=== PATIENT | male | born 1955 | race Caucasian/White ===

== ENCOUNTER 2017-06-12 17:20 | Emergency (ER) | payer BC ==
[2017-06-12] MEDS ORDERED: IOPAMIDOL-300 100 ML VIAL IVP ONE ×2 (17:21→20:02)
[2017-06-12 17:48] LABS: BASOPHILS # (AUTO) 0.1 10^3/uL (0.0-0.1); BASOPHILS % (AUTO) 1.5 %; EOSINOPHILS # (AUTO) 0.2 10^3/uL (0.0-0.7); EOSINOPHILS % (AUTO) 3.3 %; HGB - HEMOGLOBIN 12.9 g/dL (14.0-18.0); LYMPHOCYTES # (AUTO) 1.7 10^3/uL (1.5-3.5); LYMPHOCYTES % (AUTO) 29.2 %; MEAN CORPUSCULAR HEMOGLOBIN 28.9 pg (27.0-31.0); MEAN CORPUSCULAR HGB CONC 33.4 g/dL (32.0-36.0); MEAN CORPUSCULAR VOLUME 86.4 fL (80.0-94.0); MEAN PLATELET VOLUME 7.1 fL (7.4-11.4); MONOCYTES # (AUTO) 0.6 10^3/uL (0.0-1.0); MONOCYTES % (AUTO) 9.5 %; NEUTROPHILS # (AUTO) 3.3 10^3/uL (1.5-6.6); NEUTROPHILS % (AUTO) 56.5 %; PLT - PLATELET COUNT 227 10^3/uL (130-450); RED BLOOD COUNT 4.48 10^6/uL (4.70-6.10); RED CELL DISTRIBUTION WIDTH 14.2 % (12.0-15.0); WHITE BLOOD COUNT 5.8 x10^3/uL (4.8-10.8)
[2017-06-12 18:01] LABS: ALBUMIN 4.4 g/dL (3.2-5.5); ALBUMIN/GLOBULIN RATIO 1.4 (1.0-2.2); BILIRUBIN,TOTAL 0.6 mg/dL (0.2-1.0); CALCIUM 9.2 mg/dL (8.5-10.3); CREATININE 0.8 mg/dL (0.6-1.2); TOTAL PROTEIN 7.5 g/dL (6.7-8.2)
[2017-06-12] MEDS ORDERED: ASPIRIN CHEW 81 MG TABLET PO STA (18:20)
--- NOTE | 2017-06-12 18:22 | ED Physician Documentation ---
PD HPI CHEST PAIN - Stated complaint Stated Complaint: CP - Chief complaint Chief Complaint: Cardiac - History obtained from History obtained from: Patient - History of Present Illness Timing - onset: Other (62-year-old gentleman with coronary atherosclerosis diagnosed by calcium score a few years ago in [place] and then followed with a negative stress test, I assume anyway because he never had any angiography after that. He was on Coreg and simvastatin. These were stopped a few months ago because he is undergoing treatment for hepatitis C with Epclusa. Over the last 3 days he has had intermittent atypical chest pain, he has been able to exercise despite it, sometimes it starts after exercising, sometimes it starts at rest. He is a little short of breath with it. There is no active chest pain while we are talking.) Review of Systems Ten Systems: 10 systems reviewed and negative Constitutional: reports: Fatigue Cardiac: reports: Chest pain / pressure. denies: Palpitations, Pedal edema, Calf pain Respiratory: reports: Dyspnea. 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 - Social History Does the pt smoke?: No Smoking Status: Never smoker Does the pt drink ETOH?: No Does the pt have substance abuse?: No - Family History Family history: reports: Non contributory PD ED PE NORMAL - Vitals Vital signs reviewed: Yes - General General: Alert and oriented X 3, No acute distress - HEENT HEENT: PERRL, EOMI - Neck Neck: Supple, no meningeal sign, No bony TTP - Cardiac Cardiac: RRR, No murmur - Respiratory Respiratory: No respiratory distress, Clear bilaterally - Abdomen Abdomen: Soft, Non tender - Back Back: No CVA TTP, No spinal TTP - Derm Derm: Normal color, Warm and dry - Extremities Extremities: No edema, No calf tenderness / cord - Neuro Neuro: Alert and oriented X 3, Normal speech Results - Vitals Vitals: Vital Signs - 24 hr 06/12/17 06/12/17 17:26 19:18 Temperature 36.6 C 36.5 C Heart Rate 58 L 67 Respiratory 18 11 L Rate Blood Pressure 180/73 H 172/83 H O2 Saturation 98 98 Oxygen O2 Source Room air - EKG (time done) 1731 Rate: Rate (enter#) (56) Rhythm: NSR Sims: Normal Intervals: Normal SC QRS: Normal Ischemia: Normal ST segments Computer interpretation: Agree with computer - Labs Labs: Laboratory Tests 06/12/17 06/12/17 06/12/17 17:42 17:42 17:42 WBC 5.8 RBC 4.48 L Hgb 12.9 L Hct 38.7 L MCV 86.4 MCH 28.9 MCHC 33.4 RDW 14.2 Plt Count 227 MPV 7.1 L Neut # 3.3 Lymph # 1.7 Hidalgo # 0.6 Eos # 0.2 Baso # 0.1 Absolute Nucleated RBC 0.00 Nucleated RBC % 0.0 Sodium 135 Potassium 3.9 Chloride 103 Carbon Dioxide 24 Anion Gap 8.0 BUN 19 Creatinine 0.8 Estimated GFR (MDRD) 97 Glucose 93 Calcium 9.2 Total Bilirubin 0.6 AST 23 ALT 20 Alkaline Phosphatase 64 Troponin I < 0.04 Total Protein 7.5 Albumin 4.4 Globulin 3.1 Albumin/Globulin Ratio 1.4 Lipase 29 06/12/17 19:33 WBC RBC Hgb Hct MCV MCH MCHC RDW Plt Count MPV Neut # Lymph # Hidalgo # Eos # Baso # Absolute Nucleated RBC Nucleated RBC % Sodium Potassium Chloride Carbon Dioxide Anion Gap BUN Creatinine Estimated GFR (MDRD) Glucose Calcium Total Bilirubin AST ALT Alkaline Phosphatase Troponin I < 0.04 Total Protein Albumin Globulin Albumin/Globulin Ratio Lipase - Rads (name of study) 1v chest Radiology: EMP read contemporaneously (Nonspecific findings in the right middle lobe, suggestive of COPD, possible mass, consider chest CT.) CT Chest Radiology: EMP read contemporaneously (The mass seen on chest x-ray is likely benign rounded atelectasis, he also has dilatation of the ascending aorta and trivessel coronary artery calcifications and adenopathy.) PD MEDICAL DECISION MAKING - ED course ED course: 62-year-old gentleman was episodic and somewhat typical pain but it is rest pain and nonexertional despite him still Exerting himself. His EKG is nonischemic and biomarkers are negative. Case discussed by phone with Dr. Mcdonald who recommended restarting his cardiac meds and he is following up next week at the [facility], [place] and will likely need a stress test. His chest x-ray was as shown and after discussion with him and his who was followed with a chest CT showing likely benign findings, but he was given a copy of the report and also discussed the dilatation of the thoracic aorta and adenopathy all needing follow-up. Departure - Departure Disposition: Home, Self Care Clinical Impression: Abnormal chest CT, Abnormal chest x-ray, Aortic root dilation Chest pain Qualifiers: Chest pain type: unspecified Qualified Code(s): R07.9 - Chest pain, unspecified Condition: Good Record reviewed to determine appropriate education?: Yes Instructions: Nitroglycerin Fast Act Dc, ED Chest Pain Atypical Unkn Cause Prescriptions: Lisinopril 10 mg PO DAILY #30 tablet Nitroglycerin 0.4 mg SL ONCE #1 bot Comments: Call 911 if you have recurrent chest pain that is resistant to the nitroglycerin or further new complaints. Returning if worse. Follow-up with the cloth classer next Thursday as discussed, take the copy of the CAT scan read with you, you will need follow-up for the aortic root dilatation as well as a repeat chest CT in approximately 3 months to reassess the chest mass which at this point seems likely to be benign.
--- NOTE | 2017-06-12 18:59 | XRAY Preliminary Report ---
Exam: XR CHEST 2 VIEW X-RAY IMPRESSION: Nonspecific findings in the right middle lobe with underlying bronchial wall thickening a nd findings suggestive of COPD. This may represent acute infection and/or atelectasis. There is a pos sible masslike opacity within the right middle lobe on frontal view. Consider CT chest for further ev aluation. [facility] SITE ID: [id number]
--- NOTE | 2017-06-12 19:10 | XRAY Report ---
EXAM: CHEST RADIOGRAPHY EXAM DATE: 06/12/2017 06:33 PM. CLINICAL HISTORY: Chest pain. COMPARISON: None. TECHNIQUE: 2 views. FINDINGS: Lungs/Pleura: Nonspecific streaking hazy opacity present within the right middle lobe with underlying bronchial wall thickening in this region. There is a possible mass-like opacity in this region measu ring up to 4.2 cm. The lungs are otherwise clear. Lungs are hyperexpanded with flattening of the diap hragm and increased retrosternal clear space suggesting possible COPD. No pleural effusion. No pneumo thorax. Mediastinum: Heart and mediastinal contours are unremarkable. Other: None. IMPRESSION: Nonspecific findings in the right middle lobe with underlying bronchial wall thickening and findings suggestive of COPD. This may represent an acute infection and/or atelectasis. There is a possible mas s-like opacity within the right middle lobe on frontal view. Consider CT chest for further evaluation . [facility] Referring Provider Line: [phone] SITE ID: [id number]
[2017-06-12] MEDS ORDERED: IOPAMIDOL-300 100 ML VIAL ONE (19:56)
--- NOTE | 2017-06-12 20:48 | CT Preliminary Report ---
Exam: CT CHEST W/ IMPRESSION: 1. No acute intrathoracic Or mallet. 2. Findings on recent chest radiograph correspond to a right lower lobe posterior region of masslike consolidation. Imaging features are most suggestive of benign rounded atelectasis. However, consider follow-up CT chest with contrast in 3-6 months for reevaluation unless prior imaging is available for comparison to help exclude malignancy. 3. Fusiform aneurysmal dilatation of the ascending thoracic aorta measuring up to 42 mm. 4. Severe trivessel coronary artery calcifications. 5. Nonspecific right hilar and gastrohepatic ligament space adenopathy. These can be reevaluated on t he same above recommended follow-up CT. [facility] SITE ID: [id number]
--- NOTE | 2017-06-12 21:09 | CT Report ---
EXAM: CT CHEST EXAM DATE: 06/12/2017 08:12 PM. CLINICAL HISTORY: Abnormal chest x-ray, chest pain. COMPARISONS: Chest radiographs 06/12/2017. TECHNIQUE: Routine helical CT imaging was performed through the chest. IV contrast: 80 mL Isovue 300. Reconstructions: Coronal and sagittal. Coronal MIP reconstruction also performed. In accordance with CT protocol optimization, one or more of the following dose reduction techniques w ere utilized for this exam: automated exposure control, adjustment of mA and/or KV based on patient s ize, or use of iterative reconstructive technique. FINDINGS: Lungs/Pleura: -In the right lower lobe posteriorly, there is a focus of pleural thickening as well as a punctate ca lcification. Adjacent to this there is parenchymal masslike nodularity measuring 41 x 17 mm (3/44). T here is mild volume loss in this region of the right lower lobe with mild swirling of bronchovascular structures towards the abnormality. This corresponds to the abnormality on recent chest radiograph. -No pleural effusion. No pneumothorax. No evidence of edema. No additional foci of mass or masslike c onsolidation. There are a few scattered punctate calcified granulomata best appreciated on thick slab MIP series 9. No suspicious pulmonary nodules. Central airways are patent. Mediastinum: -No cardiac enlargement. No significant pericardial effusion. There are severe trivessel coronary art jose luis calcifications. -There is fusiform aneurysmal dilatation of the thoracic aorta measuring 42 mm (6/19). Mild calcific plaque present in the ascending thoracic aorta. Moderate at the aortic arch and mild through the desc ending aorta. The aortic arch measures 33 mm (7/35). The descending thoracic aorta is within normal l imits measuring 30 mm. No dissection. -No abnormally enlarged mediastinal lymph nodes. There is an enlarged right hilar lymph node measurin g 13 x 22 mm (3/30) of uncertain significance and etiology. -Main pulmonary arterial caliber is within normal limits. No filling defect of the central pulmonary arteries. Bones: No acute osseous abnormality. No suspicious focal osseous lesion. Minimal degenerative spondyl itic changes present in the thoracic spine. Degenerative changes present at the shoulders with bone-o n-bone appearance on the right. Visualized Abdomen: Borderline-enlarged gastrophrenic ligament lymph node of uncertain etiology (3/61 ). Additional mildly prominent gastrohepatic ligament lymph nodes are also present (for example 3/58) . Normal variant prominent right extrarenal pelvis noted. Other: The visualized lower thyroid is unremarkable. No abnormally enlarged axillary, supraclavicular or internal mammary lymph nodes. IMPRESSION: 1. No acute intrathoracic abnormality. 2. Findings on recent chest radiograph correspond to a right lower lobe posterior region of masslike consolidation. Imaging features are most suggestive of benign rounded atelectasis. However, consider follow-up CT chest with contrast in 3-6 months for reevaluation unless prior imaging is available for comparison to help exclude malignancy. 3. Fusiform aneurysmal dilatation of the ascending thoracic aorta measuring up to 42 mm. 4. Severe trivessel coronary artery calcifications. 5. Nonspecific right hilar and gastrohepatic ligament space adenopathy. These can be reevaluated on t he same above recommended follow-up CT. [facility] Referring Provider Line: [phone] SITE ID: [id number]
[2017-06-12] MEDS ORDERED: LISINOPRIL 5 MG TABLET PO STA (21:27)
[2017-06-12 21:31] VITALS: BP 152/78
== END 2017-06-12 21:36 | disposition home or self-care (01) ==
LOC: ED 17:20
DX: R93.7 Abnormal findings on diagnostic imaging of other parts of musculoskeletal system (principal); I77.819 Aortic ectasia, unspecified site; R07.9 Chest pain, unspecified; I25.10 Atherosclerotic heart disease of native coronary artery without angina pectoris
CPT/HCPCS: 36415; 71046; 71260; 80053; 83690; 84484; 85025; 93005; 99283; A9270; Q9967

== ENCOUNTER 2017-11-23 11:55 | Outpatient (CLI) | payer OTHER ==
[2017-11-23] MEDS ORDERED: IOPAMIDOL-300 100 ML VIAL ONE (12:03)
[2017-11-23] MEDS ORDERED: IOPAMIDOL-300 100 ML VIAL IVP ONE (13:06)
--- NOTE | 2017-11-23 16:59 | CT Report ---
Reason: PLEURISY R LUNG BASE Procedure Date: 11/23/2017 Accession Number: [id number] / [id number] Procedure: CT - Chest W/ CPT Code: FULL RESULT: EXAM: CT CHEST EXAM DATE: 11/23/2017 12:25 PM. CLINICAL HISTORY: Right chest pain COMPARISONS: CHEST W/ 06/12/2017 8:00 PM. TECHNIQUE: Routine helical CT imaging was performed through the chest. IV contrast: 80 cc Isovue 300. Reconstructions: Coronal and sagittal. In accordance with CT protocol optimization, one or more of the following dose reduction techniques were utilized for this exam: automated exposure control, adjustment of mA and/or KV based on patient size, or use of iterative reconstructive technique. FINDINGS: Lungs/Pleura: Interval decrease in volume of juxtapleural reticular density within the right lower lobe, likely resolving atelectasis. Mild interval increase in linear juxtadiaphragmatic density within the right lung base (for example image 36 series 6). There is mild right costophrenic sulcus blunting. No discrete mass is seen. No evidence of lobar infiltrate. No central airway abnormalities. No pneumothorax. Mediastinum: Heart size is within normal limits. Relatively stable mildly enlarged right hilar lymph nodes. There are no enlarged axillary, supraclavicular, or mediastinal lymph nodes. There are aortic calcifications. There is mild aneurysmal dilatation of the ascending thoracic aorta which measures up to 4.1 cm in AP diameter. This is stable. No evidence of central pulmonary embolus. There are coronary artery calcifications. Bones: No acute bony abnormalities are seen. Visualized Abdomen: There is right pelviectasis. This is stable. Mildly enlarged gage hepatis lymph nodes are unchanged. Visualized portions of the upper abdominal organs demonstrate no acute abnormalities. Other: None. IMPRESSION: 1. Mild interval decrease in reticular density within the right lung base, probably representing resolving atelectasis. 2. There is right base juxtadiaphragmatic thickening which could represent small amount of pleural fluid and/or pleural thickening. 3. No evidence of lobar infiltrate. 4. Mildly enlarged right hilar lymph nodes are unchanged. 5. There is stable, mild aneurysmal dilatation of the ascending thoracic aorta. There are aortic calcifications. 6. Heart size is within normal limits. There are coronary artery calcifications. 7. There is stable right kidney pelviectasis. [facility]
== END 2017-11-23 11:56 | disposition home or self-care (01) ==
LOC: DI 11:55
PROVIDERS: ATTEND Registered Nurse
DX: R91.8 Other nonspecific abnormal finding of lung field (principal); R59.0 Localized enlarged lymph nodes; I77.810 Thoracic aortic ectasia; I25.10 Atherosclerotic heart disease of native coronary artery without angina pectoris
CPT/HCPCS: 71260; Q9967